=== PATIENT | female | born 1995 | race Caucasian/White ===

== ENCOUNTER 2019-07-31 09:37 | Emergency (ER) | payer OTHER ==
[2019-07-31 09:43] VITALS: BP 116/78; PULSE 66; TEMP 98.2; BMI 45.3
--- NOTE | 2019-07-31 10:08 | PDOC ---
History of Present Illness - General Chief Complaint: Cold Symptoms Stated Complaint: Cold Symptoms Time Seen by Provider: 07/31/19 09:48 History Source: Patient - History of Present Illness Timing/Duration: reports: other Past History - Past Medical History Allergies/Adverse Reactions: Allergies Allergy/AdvReac Type Severity Reaction Status Date / Time No Known Allergies Allergy Verified 07/31/19 09:43 Home Medications: Ambulatory Orders NK [No Known Home Medication] 11/21/15 Asthma: Yes COPD: No - Immunization History Immunization Up to Date: Yes - Psycho Social/Smoking Cessation Hx Smoking History: Never smoked Number of Cigarettes Smoked Daily: 0 Hx Alcohol Use: No Drug/Substance Use Hx: No Substance Use Type: None Review of Systems - Review of Systems Constitutional: Yes: Malaise. No: Chills, Fever HEENTM: No: Ear Pain, Throat Pain Respiratory: Yes: Cough. No: Shortness of Breath, Wheezing Cardiac (ROS): No: Chest Pain ABD/GI: Yes: Nausea. No: Diarrhea, Vomiting, Abdominal cramping *Physical Exam - Vital Signs Last Vital Signs Temp Pulse Resp BP Pulse Ox 98.2 F 66 16 116/78 99 07/31/19 09:40 07/31/19 09:40 07/31/19 09:40 07/31/19 09:40 07/31/19 09:40 - Physical Exam General Appearance: Yes: Appropriately Dressed. No: Apparent Distress HEENT: positive: Normal ENT Inspection, Normal Voice, TMs Normal. negative: Pharynx Normal, Scleral Icterus (R), Scleral Icterus (L) Neck: positive: Supple. negative: Decreased range of motion, Lymphadenopathy (R ), Lymphadenopathy (L) Respiratory/Chest: positive: Lungs Clear, Normal Breath Sounds. negative: Respiratory Distress Cardiovascular: positive: Regular Rate, S1, S2 Gastrointestinal/Abdominal: positive: Soft. negative: Tender Musculoskeletal: negative: CVA Tenderness Integumentary: positive: Dry, Warm Neurologic: positive: Fully Oriented, Alert, Normal Mood/Affect Medical Decision Making - Medical Decision Making 07/31/19 10:05 23-year-old female, history of asthma, here with malaise with bodyaches, cough, congestion and nausea x4 days. Denies any vomiting, sore throat, ear pain, abdominal pain, diarrhea, f/c. Has not been taking anything for the symptoms. 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 see exam Viral syndrome Exam unremarkable Outside window for tamiflu -Dc w/ supportive tx Discharge - Discharge Information Problems reviewed: Yes Clinical Impression/Diagnosis: Viral syndrome Condition: Good Disposition: HOME - Follow up/Referral - Patient Discharge Instructions Patient Printed Discharge Instructions: DI for Viral Syndrome - Post Discharge Activity Work/Back to School Note: Back to Work
== END 2019-07-31 10:22 | disposition home or self-care (01) ==
LOC: JERFT 09:37
DX: B34.9 Viral infection, unspecified (principal); J45.901 Unspecified asthma with (acute) exacerbation
CPT/HCPCS: 99281-25